=== PATIENT | male | born 1955 | race Caucasian/White ===

== ENCOUNTER 2016-08-25 21:25 | Inpatient (IN) | payer OTHER ==
[2016-08-25] MEDS ORDERED: NS 1,000 ML IV ONE (21:48)
[2016-08-25 21:55] LABS: % IMMATURE GRANULYOCYTES 0.3 % (0.0-1.1); ABSOLUTE IMMATURE GRANULOCYTES 0.03 10^3/uL (0.00-0.10); ADD DIFF? NO; ADD MORPH? NO; ADD SCAN? NO; ATYPICAL LYMPHOCYTE FLAG 0 (0-99); FRAGMENT RBC FLAG 0 (0-99); HEMATOCRIT 50.7 % (40.0-51.0); HEMOGLOBIN 17.5 g/dL (13.7-17.5); LEFT SHIFT FLG 10 (0-99); LIPEMIA HEMOLYSIS FLAG 90 (0-99); MEAN CELL HEMOGLOBIN 32.5 pg (27.9-34.1); MEAN CELL HEMOGLOBIN CONCENTR. 34.5 g/dL (32.4-36.7); MEAN CELL VOLUME 94.1 fL (81.5-99.8); MEAN PLATELET VOLUME 9.5 fL (8.7-11.7); PLATELET CLUMPS FLAG 0 (0-99); PLATELET COUNT 264 10^3/uL (150-400); RED BLOOD CELL COUNT 5.39 10^6/uL (4.40-6.38); RED CELL DISTRIBUTION WIDTH 12.6 % (11.5-15.2)
[2016-08-25] MEDS ORDERED: fentaNYL 100 MCG/2 ML INJ IVP ONE (21:58)
[2016-08-25 22:03] LABS: INR 1.06 (0.83-1.16); PROTIME(PATIENT) 13.7 SEC (12.0-15.0)
--- NOTE | 2016-08-25 22:03 | EDPHY ---
H & P Stated Complaint: c/o abd distention/pain x 3 days, last bm th am HPI/ROS: CHIEF COMPLAINT: Abdominal pain, distention, constipation HISTORY OF PRESENT ILLNESS: Patient complains of 3 days history of abdominal pain. This is [id number]. Associated with some constipation and burping. No vomiting. No fever or chills. It is worse with palpation, movement and intake by mouth. Minimal improvement rest. No trauma or injury. No chest pain or shortness of breath. No dizziness or diaphoresis. No previous abdominal surgeries or diagnoses. He does have a history of polyps that have been removed on colonoscopy without any significant sequela. No other associated complaints or modifying factors. REVIEW OF SYSTEMS: Ten systems reviewed and are negative unless otherwise noted in the HPI PAST MEDICAL HISTORY: Fatty liver, low T SOCIAL HISTORY: Nonsmoker. 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 Uvula midline. Airway is widely patent. Neck: Normal inspection, supple, non-tender. Trachea midline. Respiratory: Lungs are clear to auscultation. No wheezing, rhonchi or crackles. Cardiovascular: Regular rate and rhythm. No murmur. Gastrointestinal: Abdomen is mildly distended and tympanic palpation. There is tenderness in all 4 quadrants. There is mildly diminished auscultation in all 4 quadrants. No rigidity. No CVA tenderness. Neurological: A&O, nonfocal, strength is symmetric in all 4 limbs. Skin: Warm and dry, no rash Extremities: Nontender, no pedal edema Psychiatric: Mood and affect normal DIFFERENTIAL DIAGNOSES: Including but not limited to small-bowel obstruction, ileus, enteritis, colitis , pancreatitis, diverticulitis, cholecystitis, cholelithiasis, appendicitis MDM: 9:50 p.m. Three days of abdominal pain, constipation and distension. Examination is tympanic with decreased bowel sounds in all quadrants. Patient does not have previous abdominal surgeries, but he does have an appearance of possible bowel obstruction. Vital signs are stable. He has been burping but not vomiting. CT scan and laboratory studies have been ordered. He is resting comfortably in no acute distress. 10:25 p.m. Laboratory studies reveal no leukocytosis. There is a mild transaminitis and elevation of the alkaline phosphatase. This reportedly is not new for the patient and does carry a diagnosis of fatty liver. He is currently being taken to CT scan at this time. 10:57 p.m. I have re-evaluated the patient. The IV dose of fentanyl has significantly improved his pain. He does not require any further pain medication at this time. He is not nauseated or actively vomiting. CT scan has been performed in the interpretation is pending at this time. 10:58 p.m. Notified by radiologist Dr. Sanford. CT scan of the abdomen pelvis shows an early partial small-bowel obstruction with transition in the distal ileum. No other acute findings. There is note of hepatic steatosis. I will consult surgery for consultation 11:05 p.m. I discussed the case with on-call surgeon Dr. Shrestha. Informed that he will be happy to see the patient in consultation and requested the patient be admitted to the medicine service. I have paged the hospitalist for admission. I have also re-evaluated the patient. I have informed him of the findings. He is resting comfortably with no active vomiting. 11:12 p.m. I have discussed the case with Dr. Harper. he will admit the patient to his service. He requests observation status to [facility] surgical bed. He is admitted in stable condition. SUPERVISION: This patient was independently evaluated without direct examination by the attending physician. Case was discussed with attending physician. Case discussed with Dr. Ramírez Source: Patient, Family Exam Limitations: No limitations - Medical/Surgical History Hx Asthma: No Hx Chronic Respiratory Disease: No Hx Diabetes: No Hx Cardiac Disease: No Hx Renal Disease: No Hx Cirrhosis: No Hx Alcoholism: No Hx HIV/AIDS: No Hx Splenectomy or Spleen Trauma: No Other PMH: low testosterone - Social History Smoking Status: Former smoker Constitutional: Initial Vital Signs Temperature (C) 99.5 F 08/25/16 21:30 Heart Rate 102 H 08/25/16 21:30 Respiratory Rate 18 08/25/16 21:30 Blood Pressure 182/114 H 08/25/16 21:30 O2 Sat (%) 96 08/25/16 21:30 O2 Delivery Mode Room Air Allergies/Adverse Reactions: shellfish derived Allergy (Verified 08/25/16 21:34) Home Medications: Medication Instructions Recorded TESTOSTERONE 08/25/16 Medical Decision Making - Diagnostics Imaging Results: Imaging Impressions Abdomen CT 08/25/16 21:48 Impression: 1. Moderate partial SBO with point of transition in the deep mesentery lower abdomen just above the iliac crest level. 2. Mild hepatic steatosis. Findings discussed with Jamar Bey PAC at 22:57 hour, 08/25/2016. - Data Points Laboratory Results: Laboratory Results 08/25/16 21:50 08/25/16 21:50 08/25/16 08/25/16 08/25/16 21:50 21:50 21:50 WBC 9.17 10^3/uL 10^3/uL (3.80-9.50) RBC 5.39 10^6/uL 10^6/uL (4.40-6.38) Hgb 17.5 g/dL g/dL (13.7-17.5) Hct 50.7 % % (40.0-51.0) MCV 94.1 fL fL (81.5-99.8) MCH 32.5 pg pg (27.9-34.1) MCHC 34.5 g/dL g/dL (32.4-36.7) RDW 12.6 % % (11.5-15.2) Plt Count 264 10^3/uL 10^3/uL (150-400) MPV 9.5 fL fL (8.7-11.7) Neut % (Auto) 63.0 % % (39.3-74.2) Lymph % (Auto) 19.7 % % (15.0-45.0) [place] % (Auto) 15.6 % H % (4.5-13.0) Eos % (Auto) 1.2 % % (0.6-7.6) Baso % (Auto) 0.2 % L % (0.3-1.7) Nucleat RBC Rel Count 0.0 % % (0.0-0.2) Absolute Neuts (auto) 5.77 10^3/uL 10^3/uL (1.70-6.50) Absolute Lymphs (auto) 1.81 10^3/uL 10^3/uL (1.00-3.00) Absolute Monos (auto) 1.43 10^3/uL H 10^3/uL (0.30-0.80) Absolute Eos (auto) 0.11 10^3/uL 10^3/uL (0.03-0.40) Absolute Basos (auto) 0.02 10^3/uL 10^3/uL (0.02-0.10) Absolute Nucleated RBC 0.00 10^3/uL 10^3/uL (0-0.01) Immature Gran % 0.3 % % (0.0-1.1) Immature Gran # 0.03 10^3/uL 10^3/uL (0.00-0.10) PT 13.7 SEC SEC (12.0-15.0) INR 1.06 (0.83-1.16) APTT 30.3 SEC SEC (23.0-38.0) Sodium 135 mEq/L mEq/L (134-144) Potassium 4.0 mEq/L mEq/L (3.5-5.2) Chloride 96 mEq/L L mEq/L (97-110) Carbon Dioxide 26 mEq/l mEq/l (22-31) Anion Gap 13 mEq/L mEq/L (8-16) BUN 16 mg/dL mg/dL (7-23) Creatinine 1.2 mg/dL mg/dL (0.7-1.3) Estimated GFR > 60 Glucose 114 mg/dL H mg/dL (70-100) Calcium 9.6 mg/dL mg/dL (8.5-10.4) Total Bilirubin 1.1 mg/dL mg/dL (0.1-1.4) Conjugated Bilirubin 0.4 mg/dL mg/dL (0.0-0.5) Unconjugated Bilirubin 0.7 mg/dL mg/dL (0.0-1.1) AST 79 IU/L H IU/L (17-59) ALT 188 IU/L H IU/L (21-72) Alkaline Phosphatase 156 IU/L H IU/L (38-126) Total Protein 7.5 g/dL g/dL (6.3-8.2) Albumin 4.3 g/dL g/dL (3.5-5.0) Lipase 47.0 IU/L IU/L (23-300) Medications Given: Discontinued Medications Fentanyl (Sublimaze) 100 mcg IVP EDNOW ONE Stop: 08/25/16 21:59 Last Admin: 08/25/16 22:15 Dose: 100 mcg Sodium Chloride (Ns) 1,000 mls @ 0 mls/hr IV ONCE ONE; Wide Open PRN Reason: Protocol Stop: 08/25/16 21:49 Last Admin: 08/25/16 22:00 Dose: 1,000 mls Departure - Departure Disposition: [facility] Inpatient Acute Clinical Impression: Partial small bowel obstruction Abdominal pain Qualifiers: Abdominal location: generalized Qualified Code(s): R10.84 - Generalized abdominal pain Condition: Good Referrals: Chichi Phan MD [Primary Care Provider] - As per Instructions
[2016-08-25 22:04] LABS: APTT 30.3 SEC (23.0-38.0)
[2016-08-25 22:10] LABS: ALANINE AMINOTRANSFERASE 188 IU/L (21-72); ALBUMIN 4.3 g/dL (3.5-5.0); ALKALINE PHOSPHATASE 156 IU/L (38-126); ANION GAP 13 mEq/L (8-16); ASPARTATE AMINOTRANSFERASE 79 IU/L (17-59); BILIRUBIN,TOTAL 1.1 mg/dL (0.1-1.4); BILIRUBIN-CONJUGATED 0.4 mg/dL (0.0-0.5); BILIRUBIN-UNCONJUGATED 0.7 mg/dL (0.0-1.1); CALCIUM 9.6 mg/dL (8.5-10.4); CARBON DIOXIDE 26 mEq/l (22-31); CHLORIDE 96 mEq/L (97-110); CREATININE 1.2 mg/dL (0.7-1.3); GLOMERULAR FILTRATION RATE > 60; GLUCOSE 114 mg/dL (70-100); SODIUM 135 mEq/L (134-144); TOTAL PROTEIN 7.5 g/dL (6.3-8.2)
[2016-08-25] MEDS ORDERED: IOPAMIDOL (ISOVUE-300) 100 ML BTL ONE (22:20)
[2016-08-25] MEDS ORDERED: HYDROmorphONE/DILAUDID 1 MG/ML SYR IVP ONE (23:27)
[2016-08-25] MEDS ORDERED: ONDANSETRON 4 MG/2 ML VIAL IVP PRN (23:41)
[2016-08-25] MEDS ORDERED: METOCLOPRAMIDE 10 MG/2 ML VIAL IVP PRN (23:41)
[2016-08-25] MEDS ORDERED: ACETAMINOPHEN 325 MG TAB PO PRN (23:41)
[2016-08-25] MEDS ORDERED: NS 1,000 ML IV SCH (23:45)
--- NOTE | 2016-08-26 00:25 | PDCONSULT ---
Extrusion Die Repairer Note: Surgical Consult CC: abd pain HPI: 60 y/o male with two day history of abdominal pain initially with several loose stools, followed by abdominal distention. Pain is constant, waxing and waning in intensity. He has had no emesis. He reports feeling chills and generalized muscle aches. He denies hematochezia, melena, unexplained weight loss. PMH: colonoscopy age 45 for rectal bleeding with benign polyp/subsequent colonoscopy every 5 years without additional polyps no abdominal surgery all: shellfish medications: testosterone EtOH: moderate former smoker SH: here with his [place] FH: father had polyps/no cancer ROS: pertinant negatives per HPI PE: articulate middle aged male in mild distress HEENT: no icterus/adenopathy Lungs: clear to ausc CVS: RRR Abd: distended/tympanitic, hypoactive bowel sounds mild mid epigastric tenderness without guarding, no hernias rectal exam deferred wbc 9.2 Hgb 17.5 Hct 50.7 creat 1.2 lipase 47 alk phos 156 ALT [address] reviewed: dilated loops of small bowel/abundant stool and gas throughout the colon no free air, mass or swirl sign Imp: 1abdominal distention/pain with prodrome of diarrhea-no clinical evidence of peritonitis. findings on CT suggest a possible bowel obstruction, though this is not a dynamic study and was without oral contrast primary small bowel obstruction in a patient without prior abdominal surgery is quite unusual, though cannot be excluded 2. elevated LFT' + hx hepatic steatosis/cannot rule out gallstones with CT 3. HTN 4. obesity Rec: Admit for IV fluids, bowel rest, consider NGT if vomiting SBFT in AM biliary ultrasound Rashmi Shrestha MD, FACS
--- NOTE | 2016-08-26 00:30 | PDGENHP ---
History and Physical - Chief Complaint Acute abdominal pain - History of Present Illness primary care provider: Dr. Mar Primary urologist: Dr. Grant HPI: 60-year-old male presenting with acute abdominal pain characterized mild to moderate pain located diffusely across his abdomen most in particular in the midline with associated bloating, belching, constipation. Patient reports onset of symptoms 3 days ago and duration has been constant thereafter. Pain has been exacerbated by palpation, movement, oral intake of solids and liquids. It was somewhat alleviated by fentanyl and Dilaudid received in the emergency department. Patient reports prior to onset of symptoms he had otherwise been feeling well. The day that the abdominal pain began, the patient had several loose bowel movements and then has not had any subsequent bowel movements thereafter. He has attempted to deescalate his diet to ron steff and bland foods but this has been unsuccessful in reducing his pain and distention. On the evening of this presentation, the patient was unable to eat meal while at a restaurant with his , leading to his presentation. History Information - Allergies/Home Medication List Allergies/Adverse Reactions: shellfish derived Allergy (Verified 08/25/16 21:34) Home Medications: TESTOSTERONE 08/25/16 [Last Taken Unknown] I have personally reviewed and updated: family history, medical history, social history, surgical history - Past Medical History Additional medical history: Testosterone deficiency. Colonic polyps with normal colonoscopies thereafter. Hepatic steatosis - Surgical History Additional surgical history: previous colonoscopies, no abdominal surgeries - Family History Additional family history: father with venous thromboembolism, mother with diabetes - Social History Smoking Status: Former smoker Alcohol Use: Other (patient regularly has 1-2 drinks a day, never experienced alcohol withdrawal) Drug Use: None Additional social history: physically active but not report regular exercise Review of Systems ROS: 10pt was reviewed & negative except for what was stated in HPI & below Gastrointestinal: Reports: abdominal pain, constipation, other ( distension) Physical Exam Temp Pulse Resp BP Pulse Ox 37 C 91 18 135/88 H 92 08/26/16 00:02 08/26/16 00:02 08/26/16 00:02 08/26/16 00:02 08/26/16 00:02 Constitutional: no apparent distress, appears nourished, not in pain Eyes: PERRL, anicteric sclera, EOMI Ears, Nose, Mouth, Throat: hearing normal, ears appear normal, no oral mucosal ulcers, other ( tacky mucous membranes) Cardiovascular: regular rate and rhythym, no murmur, rub, or gallop, No edema Respiratory: no respiratory distress, no rales or rhonchi, clear to auscultation Gastrointestinal: tenderness ( mild along midline), distension ( moderately), other ( hypoactive bowel sounds), No guarding Skin: warm, normal color, no rashes or abrasions, no fluctuance, no induration, No mottled Neurologic: AAOx3, No facial droop Psychiatric: interacting appropriately, not anxious, not encephalopathic, thought process linear Lab Data & Imaging Review 08/25/16 21:50 08/25/16 21:50 WBC 9.17 10^3/uL (3.80-9.50) 08/25/16 21:50 RBC 5.39 10^6/uL (4.40-6.38) 08/25/16 21:50 Hgb 17.5 g/dL (13.7-17.5) 08/25/16 21:50 Hct 50.7 % (40.0-51.0) 08/25/16 21:50 MCV 94.1 fL (81.5-99.8) 08/25/16 21:50 MCH 32.5 pg (27.9-34.1) 08/25/16 21:50 MCHC 34.5 g/dL (32.4-36.7) 08/25/16 21:50 RDW 12.6 % (11.5-15.2) 08/25/16 21:50 Plt Count 264 10^3/uL (150-400) 08/25/16 21:50 MPV 9.5 fL (8.7-11.7) 08/25/16 21:50 Neut % (Auto) 63.0 % (39.3-74.2) 08/25/16 21:50 Lymph % (Auto) 19.7 % (15.0-45.0) 08/25/16 21:50 [place] % (Auto) 15.6 % (4.5-13.0) H 08/25/16 21:50 Eos % (Auto) 1.2 % (0.6-7.6) 08/25/16 21:50 Baso % (Auto) 0.2 % (0.3-1.7) L 08/25/16 21:50 Nucleat RBC Rel Count 0.0 % (0.0-0.2) 08/25/16 21:50 Absolute Neuts (auto) 5.77 10^3/uL (1.70-6.50) 08/25/16 21:50 Absolute Lymphs (auto) 1.81 10^3/uL (1.00-3.00) 08/25/16 21:50 Absolute Monos (auto) 1.43 10^3/uL (0.30-0.80) H 08/25/16 21:50 Absolute Eos (auto) 0.11 10^3/uL (0.03-0.40) 08/25/16 21:50 Absolute Basos (auto) 0.02 10^3/uL (0.02-0.10) 08/25/16 21:50 Absolute Nucleated RBC 0.00 10^3/uL (0-0.01) 08/25/16 21:50 Immature Gran % 0.3 % (0.0-1.1) 08/25/16 21:50 Immature Gran # 0.03 10^3/uL (0.00-0.10) 08/25/16 21:50 PT 13.7 SEC (12.0-15.0) 08/25/16 21:50 INR 1.06 (0.83-1.16) 08/25/16 21:50 APTT 30.3 SEC (23.0-38.0) 08/25/16 21:50 Sodium 135 mEq/L (134-144) 08/25/16 21:50 Potassium 4.0 mEq/L (3.5-5.2) 08/25/16 21:50 Chloride 96 mEq/L (97-110) L 08/25/16 21:50 Carbon Dioxide 26 mEq/l (22-31) 08/25/16 21:50 Anion Gap 13 mEq/L (8-16) 08/25/16 21:50 BUN 16 mg/dL (7-23) 08/25/16 21:50 Creatinine 1.2 mg/dL (0.7-1.3) 08/25/16 21:50 Estimated GFR > 60 08/25/16 21:50 Glucose 114 mg/dL (70-100) H 08/25/16 21:50 Calcium 9.6 mg/dL (8.5-10.4) 08/25/16 21:50 Total Bilirubin 1.1 mg/dL (0.1-1.4) 08/25/16 21:50 Conjugated Bilirubin 0.4 mg/dL (0.0-0.5) 08/25/16 21:50 Unconjugated Bilirubin 0.7 mg/dL (0.0-1.1) 08/25/16 21:50 AST 79 IU/L (17-59) H 08/25/16 21:50 ALT 188 IU/L (21-72) H 08/25/16 21:50 Alkaline Phosphatase 156 IU/L (38-126) H 08/25/16 21:50 Total Protein 7.5 g/dL (6.3-8.2) 08/25/16 21:50 Albumin 4.3 g/dL (3.5-5.0) 08/25/16 21:50 Lipase 47.0 IU/L (23-300) 08/25/16 21:50 Visualized and Interpreted imaging results: Yes Interpretation: abdominal CT demonstrating moderate partial small bowel obstruction near the iliac crest with hepatic steatosis Assessment & Plan Assessment: 60-year-old male presenting with acute abdominal pain in the setting of acute partial small-bowel obstruction Plan: 1. Partial small bowel obstruction. Acute, new problem this provider, further workup indicated. Evidenced by distension radiographically and on physical exam with lack of flatus and bowel movements. Symptoms have been reasonably controlled with IV pain medications -no indication for nasogastric tube at this time as the patient is not actively vomiting -supportive care with IV pain and antiemetic medications, use Reglan 1st -exact etiology is unclear although it may have been precipitated by viral gastroenteritis as the patient's and child both experience some GI symptoms approximately 1 week ago -send fecal occult blood -discussed with Dr. Shrestha, consultation appreciated, he has recommended small- bowel follow-through to be performed in a.m. -maintain NPO status, consider advancing to ice chips tomorrow morning depending on how he is doing clinically 2. Hepatic steatosis. Resulting in transaminitis, counseled patient and that this should be attended to 3 patient's primary care provider -discussed with Dr. Johs, he recommends right upper quadrant ultrasound given patient's elevated alk-phos level, rule out stones -recommended alcohol reduction, then weight loss, then potential medical management Diet. NPO with IV fluids Prophylaxis. Moderate to high risk patient given that he is chronically on testosterone also has a family history of venous thromboembolism, Lovenox 40 Code. Full Disposition. Anticipated discharge 08/26/2016, pending clinical improvement of condition as outlined above.
[2016-08-26 01:16] LABS: COLOR YELLOW; LEUKOCYTE ESTERASE,URINE NEGATIVE (NEGATIVE); NITRITE,URINE NEGATIVE (NEGATIVE)
[2016-08-26 01:20] LABS: MUCUS TRACE /lpf (NONE-1+)
[2016-08-26 05:09] LABS: % IMMATURE GRANULYOCYTES 0.5 % (0.0-1.1); ABSOLUTE IMMATURE GRANULOCYTES 0.04 10^3/uL (0.00-0.10); ADD DIFF? NO; ADD MORPH? NO; ADD SCAN? NO; ATYPICAL LYMPHOCYTE FLAG 10 (0-99); FRAGMENT RBC FLAG 0 (0-99); HEMOGLOBIN 14.9 g/dL (13.7-17.5); LEFT SHIFT FLG 0 (0-99); LIPEMIA HEMOLYSIS FLAG 90 (0-99); MEAN CELL HEMOGLOBIN 32.7 pg (27.9-34.1); MEAN CELL HEMOGLOBIN CONCENTR. 34.7 g/dL (32.4-36.7); MEAN CELL VOLUME 94.5 fL (81.5-99.8); MEAN PLATELET VOLUME 9.4 fL (8.7-11.7); PLATELET CLUMPS FLAG 0 (0-99); PLATELET COUNT 220 10^3/uL (150-400); RED BLOOD CELL COUNT 4.55 10^6/uL (4.40-6.38); RED CELL DISTRIBUTION WIDTH 12.6 % (11.5-15.2)
[2016-08-26 05:20] LABS: ALANINE AMINOTRANSFERASE 136 IU/L (21-72); ALBUMIN 3.2 g/dL (3.5-5.0); ALKALINE PHOSPHATASE 124 IU/L (38-126); ANION GAP 9 mEq/L (8-16); ASPARTATE AMINOTRANSFERASE 51 IU/L (17-59); BILIRUBIN,TOTAL 0.9 mg/dL (0.1-1.4); CARBON DIOXIDE 25 mEq/l (22-31); CHLORIDE 106 mEq/L (97-110); CREATININE 1.2 mg/dL (0.7-1.3); GLOMERULAR FILTRATION RATE > 60; GLUCOSE 91 mg/dL (70-100); POTASSIUM 4.2 mEq/L (3.5-5.2); SODIUM 140 mEq/L (134-144); TOTAL PROTEIN 6.1 g/dL (6.3-8.2)
[2016-08-26] MEDS: HYDROmorphONE/DILAUDID 1 MG/ML SYR IVP PRN ×2 (08:53→15:40)
[2016-08-26] MEDS: ENOXAPARIN 40 MG/0.4 ML SYR SC SCH (08:54)
--- NOTE | 2016-08-26 10:40 | HOSPPROG ---
Hospitalist Progress Note Assessment/Plan: 60-year-old male presented with acute abdominal pain/ acute partial small- bowel obstruction. Today is my first encounter w the patient, chart reviewed. *Partial SBO to get a SBFT today patient has no hx of abdominal surgeries patient not passing flatus no vomiting but is very bloated NPO and IV fluids awaiting input from surgery *Hepatic steatosis. abdominal ultrasound shows a contracted gallbladder liver is consistent w fatty infiltration *htn bp 142/86 Plan: will await for further input and guidance from Dr Shrestha Subjective: Bernard has no specific complaints x that he feels very bloated. Objective: Vital Signs Temp Pulse Resp BP Pulse Ox 36.9 C 83 14 142/86 H 93 08/26/16 08:37 08/26/16 08:37 08/26/16 08:37 08/26/16 08:37 08/26/16 08:37 Laboratory Results 08/26/16 04:48 08/26/16 04:48 08/25/16 08/26/16 08/27/16 05:59 05:59 05:59 Intake Total 1682 Output Total 200 Balance 1482 PT 13.7 SEC (12.0-15.0) 08/25/16 21:50 INR 1.06 (0.83-1.16) 08/25/16 21:50 - Physical Exam Constitutional: uncomfortable Eyes: PERRL Ears, Nose, Mouth, Throat: ears appear normal Cardiovascular: regular rate and rhythym Respiratory: no respiratory distress Gastrointestinal: normoactive bowel sounds, distension Skin: warm Musculoskeletal: full muscle strength Neurologic: AAOx3 Psychiatric: interacting appropriately, not anxious ICD10 Worksheet Patient Problems: Problems Problem Status Onset Abdominal pain Acute Partial small bowel obstruction Acute
[2016-08-27] MEDS ORDERED: TEMAZEPAM 15 MG CAP PO PRN (00:41)
[2016-08-27 04:46] VITALS: O2SAT 93
[2016-08-27 07:42] VITALS: BP 133/84; PULSE 75; RESP 18; TEMP 97.7
[2016-08-27] MEDS: ENOXAPARIN 40 MG/0.4 ML SYR SC SCH (08:11)
--- NOTE | 2016-08-27 08:49 | PDCONSULT ---
Pest Control Operator Note: Bernard feels better. He had several liquid stools. His SBFT showed no obstruction, though slow transit was noted Abd: soft/less distended, minimal epigastric tenderness LFTs improve Imp: resolving abdominal pain/no evidence of SBO Rec: advance to bland diet continue work up as outpatient if symptoms recur or persist. I recommended he follow up with his gastroenterologis Dr. Jossue Wilkinson as an outpatient Rashmi Shrestha MD, FACS
--- NOTE | 2016-08-27 15:26 | GDS ---
[f rep st] DISCHARGE SUMMARY DISCHARGE DIAGNOSIS: Abdominal pain. CONSULTATIONS: Dr. Shrestha of Surgery. STUDIES AND PROCEDURES DONE: CT of the abdomen. PHYSICAL EXAMINATION: GENERAL: The patient is alert. VITAL SIGNS: Afebrile at 36.5, pulse is 75, respiratory rate is 18, blood pressure is 133/84, he is saturating 93% on room air. I have seen an d evaluated the patient on the day of discharge. HOSPITAL COURSE: The patient is a 60-year-old male. Presented to the emergency room with complaint s of abdominal pain. He was evaluated and diagnosed with acute onset of abdominal pain during this hospitalization. CT of the abdomen noted a radiological small bowel obstruction; however, the patie nt did not require any supportive management regarding this. He received a consultation from Dr. Sadaf calderon of General Surgery. Please refer to Dr. Shrestha' consultation for specific details. The patient is tolerating a regular diet, has been having bowel movements. His abdominal pain has resolved and he is eager to be discharged home. He will be discharged home independently to follow up in the outct tient setting with Dr. Shrestha or his primary care physician, Dr. Phan. DISCHARGE MEDICATIONS: Please refer to EMR form. I have not provided the patient a prescription at the time of disposition. I have reviewed the patient's disposition with Dr. Shrestha, who is in agreement with this plan. I spen t greater than 35 minutes in the care, coordination and management of this patient's disposition. /[id number]/MODL
== END 2016-08-27 12:08 | disposition home or self-care (01) | DRG 392 ==
LOC: F3E 08-26 00:29 → OBSVTOIN 08-26 16:45
PROVIDERS: ADMIT Internal Medicine; ATTEND Internal Medicine
DX: R10.84 Generalized abdominal pain (principal); K76.0 Fatty (change of) liver, not elsewhere classified; Z87.891 Personal history of nicotine dependence
CPT/HCPCS: 96374; J1170; J1650; J3010; Q9967